=== PATIENT | female | born 2000 | race Hispanic/Latino ===

== ENCOUNTER 2019-02-17 22:30 | Emergency (ER) | payer OTHER, SELFPAY ==
[2019-02-17 23:44] LABS: #Basophils 0.1 thou/uL (0.0-0.2); #Eosinphils 0.2 thou/uL (0.0-0.7); #Lymphocytes 3.3 thou/uL (1.20-3.40); #Monocytes 0.7 thou/uL (0.11-0.59); #Neutrophils 7.9 thou/uL (1.40-6.50); %Basophils 0.4 % (0.0-1.0); %Eosinophils 1.3 % (0.0-10.0); %Lymphocytes 27.5 % (28.0-48.0); %Monocytes 5.5 % (0.0-4.0); %Neutrophils 65.3 % (31.0-61.0); Mean Corpuscular HGB CONC 32.7 g/dL (32.0-36.0); Mean Corpuscular Hemoglobin 28.4 pg (25.0-35.0); Mean Corpuscular Volume 86.6 fL (78.0-98.0); Mean Platelet Volume 9.2 fL (7.4-10.4); Platelet Count 247 thou/uL (130-400); Red Blood Cell (RBC) Count 4.59 mill/uL (4.00-5.20); White Blood Cell (WBC) Count 12.2 thou/uL (4.8-10.8)
[2019-02-17 23:52] LABS: BHCG - Serum Negative (NEGATIVE); Pregs Control Background? CLEAR/WHITE (CLR/WHITE); Pregs Control Bar Appear? YES (CONTROL BAR)
[2019-02-18 00:09] LABS: Anion Gap 13 mmol/L (10-20); BUN (Urea Nitrogen) 7 mg/dL (7.0-18.7); Calc. Creatinine Clearance 0 mL/min (70-130); Calcium 9.6 mg/dL (7.8-10.44); Carbon Dioxide 26 mmol/L (22-29); Chloride 104 mmol/L (98-107); Estimated GFR-MDRD Greater than 90; Glucose 88 mg/dL (70-105); Lipase 15 U/L (8-78); Potassium 4.1 mmol/L (3.5-5.1); Sodium 139 mmol/L (136-145)
[2019-02-18 00:36] LABS: Bilirubin Negative (Negative); Blood, Urine Negative (Negative); Clarity CLEAR (Clear); Glucose, Urine (Dipstick) Negative (Negative); Leukocyte Negative (Negative); Nitrite Negative (Negative); Protein, Urine (Dipstick) Negative (Neg-Trace); Specific Gravity, Urine 1.021 (1.002-1.036); pH, Urine 6.5 (5.0-9.0)
--- NOTE | 2019-02-18 07:39 | ULT ---
Preliminary Radiology Report EXAM: US Abdomen Limited, Right Upper Quadrant EXAM DATE/TIME: 02/18/2019 12:13 AM CLINICAL HISTORY: 18 years old, female; Other: Upper abd pain TECHNIQUE: Imaging protocol: Real-time ultrasound of the abdomen with image documentation. Examination was focused on the right upper quadrant. COMPARISON: No relevant prior studies available. FINDINGS: Liver: Normal. No masses. Gallbladder: Normal. No gallstones. There is no gallbladder wall thickening. Common bile duct: Normal. No stones. No dilation. Pancreas: Visualized pancreas is unremarkable. Right kidney: Normal. No mass. No hydronephrosis. IMPRESSION: No acute findings. Thank you for allowing us to participate in the care of your patient. Dictated and Authenticated by: Mau Paredes MD 02/18/2019 1:05 AM Central Time ([place] & [place]) FINAL REPORT: EMERGENT AFTER HOURS RIGHT UPPER QUADRANT ULTRASOUND: HISTORY: Upper abdominal pain. IMPRESSION: 1. No gallbladder calculi are visualized. The common duct is normal in caliber, measuring 0.3 cm in diameter. 2. Small, 0.9 cm anechoic structure projecting from the mid portion superior pole, right kidney, lik rachel representing a small cyst. 3. No acute findings are seen on this right upper quadrant ultrasound examination. 4. Findings are in agreement with the preliminary report by Fina. CODE QA Transcribed Date/Time: 02/20/2019 8:23 AM
== END 2019-02-18 01:10 | disposition home or self-care (01) ==
LOC: ERS 22:30
DX: R10.11 Right upper quadrant pain (principal)
CPT/HCPCS: 36415; 76705; 80048; 81003; 83690; 84703; 85025

== ENCOUNTER → 2023-10-22 | Day surgery (SDC) | payer SELFPAY ==
[~2023-10-22] MED LIST: Rabies Vaccine Human 2.5 UNITS VIAL ONE
== END ==
LOC: ER/OP 06:20
PROVIDERS: ATTEND Student in an Organized Health Care Education/Training Program
DX: Z23 Encounter for immunization (principal)
CPT/HCPCS: 90471; 90675

== ENCOUNTER → 2023-10-26 | Day surgery (SDC) | payer SELFPAY | LOC: ER/OP 08:28 | PROVIDERS: ATTEND Emergency Medicine | DX: Z23 Encounter for immunization (principal) | CPT/HCPCS: 90471; 90675 ==

== ENCOUNTER → 2023-11-02 | Day surgery (SDC) | payer SELFPAY | LOC: ER/OP 08:17 | PROVIDERS: ATTEND Emergency Medicine | DX: Z23 Encounter for immunization (principal) | CPT/HCPCS: 90471; 90675 ==